=== PATIENT | female | born 2000 | race Caucasian/White ===

== ENCOUNTER 2021-08-31 14:22 | Emergency (ER) | payer OTHER ==
[~2021-08-31 14:22] MED LIST: BACTRIM DS TAB1 EACH PO; FLAGYL500 MG PO; PYRIDIUM200 M1 PO
[2021-08-31] MEDS ORDERED: VIBRAMYCIN100 MG PO (15:41)
== END 2021-08-31 16:25 | disposition home or self-care (01) ==
LOC: FER 14:22
DX: L01.00 Impetigo, unspecified (principal)
CPT/HCPCS: 99282

== ENCOUNTER 2021-11-14 13:41 | Emergency (ER) | payer OTHER ==
[~2021-11-14 13:41] MED LIST changes: +VIBRAMYCIN100 MG PO
[2021-11-14] MEDS ORDERED: NORCO 5-325 TA1 EACH PO (20:54)
== END 2021-11-14 21:30 | disposition home or self-care (01) ==
LOC: FER 13:41
DX: S92.311A Displaced fracture of first metatarsal bone, right foot, initial encounter for closed fracture (principal); S92.321A Displaced fracture of second metatarsal bone, right foot, initial encounter for closed fracture; S92.331A Displaced fracture of third metatarsal bone, right foot, initial encounter for closed fracture; S92.341A Displaced fracture of fourth metatarsal bone, right foot, initial encounter for closed fracture; Z88.0 Allergy status to penicillin; Z88.2 Allergy status to sulfonamides; Z88.6 Allergy status to analgesic agent; V43.52XA Car driver injured in collision with other type car in traffic accident, initial encounter; Y92.410 Unspecified street and highway as the place of occurrence of the external cause
CPT/HCPCS: 73630